=== PATIENT | male | born 1995 | race Two or more races ===

== ENCOUNTER 2017-09-27 22:34 | Inpatient (IN) | payer OTHER ==
[~2017-09-27] VITALS: Ht 172.7 cm; Wt 130.6 kg
--- NOTE | 2017-09-27 23:00 | NUR ---
RN ADMITTING NOTES PATIENT ENTERED FACILITY VIA [facility], ACCOMPANIED BY 2 PERSONNEL OF [facility]. PATIENT IS ALERT AND ORIENTED X 4, NO SOB, BREATHING EVEN AND UNLABORED, SAFELY TRANSFERRED FROM [facility] TO BED BY AMBULATING WITH ASSIST,NO C/O N/V AT THIS TIME AND IN NO ACUTE DISTRESS. ORIENTED PATIENT TO FACILITY, ROOM, CALL LIGHT AND USE OF CALL LIGHT, VERBALIZED UNDERSTANDING. ALL PATIENT'S NEEDS ATTENDED TO AT THIS TIME. PATIENT UNDER TELE MONITORING SINUS TACHY @ 127 BPM. WILL CONTINUE TO MONITOR PATIENT.
--- NOTE | 2017-09-27 23:45 | NUR ---
RN NOTE PATIENT IN BED, IN NO ACUTE DISTRESS, AUTO TECHNICIAN GINO AT BEDSIDE WITH NEW ORDERS TO GIVE 500 ML NS IV BOLUS AND TO ORDER STAT EKG. ALL ORDERS NOTED AND CARRIED OUT, PATIENT AND PATIENT'S MOTHER AT BEDSIDE MADE AWARE, AGREES WITH PLAN OF CARE. WILL CONTINUE TO MONITOR.
[2017-09-28] MEDS ORDERED: ONDANSETRON HCL/PF 4 MG/2 ML VIAL IVP PRN
[2017-09-28] MEDS ORDERED: MAGNESIUM HYDROXIDE 30 ML UDC PO PRN
[2017-09-28] MEDS ORDERED: HYDROCODONE/APAP 5/325MG 1 EACH TABLET PO PRN
[2017-09-28] MEDS ORDERED: ACETAMINOPHEN 325 MG TABLET PO PRN
[2017-09-28] MEDS ORDERED: Z GUARD REMEDY 2 OZ OINT TP PRN
[2017-09-28] MEDS ORDERED: IV NS 0.9% 500 ML IV ONE
[2017-09-28] MEDS ORDERED: MAG HYDROX/AL HYDROX/SIMETH 30 ML UDC PO PRN
[2017-09-28] MEDS ORDERED: ZOLPIDEM TARTRATE 5 MG TABLET PO PRN
[2017-09-28] MEDS ORDERED: IV NS 0.9% 1,000 ML IV PRN
[2017-09-28 00:02] VITALS: BP 110/68
[2017-09-28 00:51] LABS: BASOPHILS % (AUTO) 0.1 % (0.0-2.0); HEMATOCRIT 41 % (39-51); HEMOGLOBIN 14.4 g/dL (13.5-17.5); LYMPHOCYTES # (AUTO) 0.9 /CMM (0.8-4.8); LYMPHOCYTES % (AUTO) 10.6 % (20.0-44.0); MEAN CORPUSCULAR HEMOGLOBIN 31 PG (26.0-33.0); MEAN CORPUSCULAR HGB CONC 35 g/dl (31.0-36.0); MEAN CORPUSCULAR VOLUME 89 fL (80-96); MONOCYTES # (AUTO) 0.6 /CMM (0.1-1.30); MONOCYTES % (AUTO) 7.2 % (2.0-12.0); NEUTROPHILS # (AUTO) 6.8 /CMM (1.8-8.9); NEUTROPHILS % (AUTO) 82.1 % (43.0-81.0); PLATELET COUNT (AUTO) 213 /CMM (150-450); RDW COEFFICIENT OF VARIATION 12.8 (11.5-15.0); RED BLOOD CELL COUNT(AUTO) 4.67 MIL/uL (4.5-6.0); WHITE BLOOD COUNT (AUTO) 8.2 K/uL (4.3-11.0)
[2017-09-28] MEDS: diphenhydrAMINE HCL ELIX 25 MG/10 ML UDC PO SCH ×3 (00:55→13:14)
[2017-09-28] MEDS ORDERED: VANCOMYCIN 1,500 MG in IV D5W 250 ML IV ONE (01:00)
[2017-09-28] MEDS ORDERED: PIPERACILLIN /TAZOBACTAM 3.375 G in IV D5W 100 ML IV SCH (01:00)
[2017-09-28 01:09] LABS: CARBON DIOXIDE 20 mmol/L (21-32); CHLORIDE 104 mmol/L (98-107); GLUCOSE 101 mg/dL (74-106); POTASSIUM 3.7 mmol/L (3.5-5.1); SODIUM SERUM 137 mmol/L (136-145); UREA NITROGEN, BLOOD 14 mg/dL (7-18)
[2017-09-28 01:16] LABS: ALANINE AMINOTRANSFERASE 104 U/L (12-78); ALBUMIN 3.5 g/dL (3.4-5.0); ALKALINE PHOSPHATASE 56 U/L (46-116); ASPARTATE AMINOTRANSFERASE 82 U/L (15-37); BILIRUBIN,TOTAL 1.8 mg/dL (0.2-1.0); MAGNESIUM 1.7 mg/dL (1.8-2.4); TOTAL PROTEIN, SERUM 7.5 g/dL (6.4-8.2)
[2017-09-28 01:19] LABS: TROPONIN I < 0.017 ng/mL (0.00-0.056)
[2017-09-28 01:30] VITALS: BP 112/67
--- NOTE | 2017-09-28 01:35 | NUR ---
RN NOTE CALLED NATIONAL COVERAGE SPECIALIST MD/MANAGER [employer] TO RELAY STAT EKG AND LAB RESULTS. AWAITING FOR CALL BACK.
[2017-09-28] MEDS ORDERED: PIPERACILLIN /TAZOBACTAM 3.375 G VIAL IV ONE (02:06)
[2017-09-28] MEDS ORDERED: VANCOMYCIN 1 GM VIAL ONE (02:08)
--- NOTE | 2017-09-28 02:45 | NUR ---
RN NOTE RECEIVED CALL BACK FROM DIANA CHRISTIAN AND RELAYED STAT EKG AND STAT LAB RESULTS WITH NO NEW ORDERS. WILL CONTINUE TO MONITOR PATIENT.
[2017-09-28] MEDS ORDERED: methylPREDNISolone SOD SUCC 40 MG/ML VIAL IV ONE (03:00)
[2017-09-28 04:00] VITALS: BP 115/71
--- NOTE | 2017-09-28 06:23 | NUR ---
RN CLOSING NOTE PATIENT IN BED, AWAKE, ALERT AND ORIENTED X 4, VERBALIZED HE IS FEELING A LITTLE BETTER, ABLE TO AMBULATE TO USE THE RESTROOM, NO SOB NOTED, BREATHING EVEN AND UNLABORED, HAD ONLY 1 EPISODE OF LOOSE STOOL DURING THE SHIFT, NO N/V. ALL PATIENT'S NEEDS ATTENDED TO AT THIS TIME, LATEST TEMP AT 100.3F WITH COOLING MEASURES APPLIED. PATIENT IN NO ACUTE DISTRESS AT THIS TIME. CALL LIGHT PLACED WITHIN EASY REACH. BED PLACED IN LOW POSITION AND LOCKED IN PLACE. WILL ENDORSE TO AM SHIFT NURSE FOR CONTINUITY OF CARE.
[2017-09-28 06:36] LABS: BASOPHILS % (AUTO) 0.1 % (0.0-2.0); HEMATOCRIT 39 % (39-51); HEMOGLOBIN 13.9 g/dL (13.5-17.5); LYMPHOCYTES # (AUTO) 0.6 /CMM (0.8-4.8); LYMPHOCYTES % (AUTO) 9.5 % (20.0-44.0); MEAN CORPUSCULAR HEMOGLOBIN 31 PG (26.0-33.0); MEAN CORPUSCULAR HGB CONC 35 g/dl (31.0-36.0); MEAN CORPUSCULAR VOLUME 88 fL (80-96); MONOCYTES # (AUTO) 0.2 /CMM (0.1-1.30); MONOCYTES % (AUTO) 3.3 % (2.0-12.0); NEUTROPHILS # (AUTO) 5.8 /CMM (1.8-8.9); NEUTROPHILS % (AUTO) 87.1 % (43.0-81.0); PLATELET COUNT (AUTO) 176 /CMM (150-450); RDW COEFFICIENT OF VARIATION 12.9 (11.5-15.0); RED BLOOD CELL COUNT(AUTO) 4.48 MIL/uL (4.5-6.0); WHITE BLOOD COUNT (AUTO) 6.7 K/uL (4.3-11.0)
[2017-09-28 07:23] LABS: CREATININE 0.9 mg/dL (0.6-1.3); PHOSPHORUS 3.1 mg/dL (2.5-4.9); POTASSIUM 3.7 mmol/L (3.5-5.1)
[2017-09-28 07:26] LABS: APPEARANCE,URINE CLEAR (CLEAR); BILIRUBIN,URINE NEGATIVE (NEGATIVE); BLOOD, URINE 1+ Ery/uL (NEGATIVE); COLOR,URINE YELLOW (YELLOW); KETONES,URINE NEGATIVE (NEGATIVE); LEUKOCYTE ESTERASE ,URINE NEGATIVE (NEGATIVE); NITRITE, URINE NEGATIVE (NEGATIVE); PROTEIN,URINE NEGATIVE (NEGATIVE); UGLUCOSE NEGATIVE (NEGATIVE); UROBILINOGEN,URINE 0.2 EU/dL (0.2)
[2017-09-28 07:29] LABS: BACTERIA,URINE None seen /HPF (None Seen); RBC,URINE 0-2 /HPF (0-2); SQUAMOUS EPITHELIAL CELL,UR 0-2 /HPF (None Seen); WBC,URINE 0-2 /HPF (0-3)
--- NOTE | 2017-09-28 07:29 | NUR ---
MS RN OPENING NOTES RECEIVED PT FROM NIGHTSHIFT NURSE IN STABLE CONDITION. PT IS A/O X4. NO SOB OR SIGNS OF DISTRESS NOTED. BREATHING IS EVEN AND UNLABORED. PT IS DIAPHORETIC. CURRENT TEMPERATURE IS 97.8. PT DENIES ANY N/V OR DIARRHEA AT THIS TIME. IV NOTED TO RIGHT AC 20G INFUSING NS @ 100ML/HR. PT TOLERATING INFUSION WELL. NO REDNESS OR SIGNS OF INFILTRATION NOTED. BED IN LOW LOCKED POSITION, SIDE RAILS UP X2, CALL LIGHT WITHIN REACH, WILL CONTINUE TO MONITOR
[2017-09-28 07:54] LABS: CALCIUM, SERUM 7.9 mg/dL (8.5-10.1); POTASSIUM 3.7 mmol/L (3.5-5.1)
[2017-09-28 07:59] LABS: ALBUMIN 3.5 g/dL (3.4-5.0); BILIRUBIN,TOTAL 1.7 mg/dL (0.2-1.0); MAGNESIUM 1.7 mg/dL (1.8-2.4); PHOSPHORUS 2.4 mg/dL (2.5-4.9); TOTAL PROTEIN, SERUM 7.5 g/dL (6.4-8.2)
[2017-09-28 08:00] VITALS: BP 124/71
[2017-09-28] MEDS ORDERED: FEE PK DOSING 1 MIN EA MC ONE (08:10)
[2017-09-28] MEDS ORDERED: VANCOMYCIN 1.5 GM in IV D5W 500 ML IV SCH (09:00)
[2017-09-28] MEDS: PIPERACILLIN /TAZOBACTAM 3.375 G in IV D5W 50 ML IV SCH ×2 (09:01→13:14)
[2017-09-28] MEDS: OSELTAMIVIR PHOSPHATE 75 MG CAPSULE PO SCH ×2 (09:02→18:11)
[2017-09-28] MEDS: FAMOTIDINE (20 MG) 20 MG TABLET PO SCH ×2 (09:02→21:26)
[2017-09-28] MEDS: ENOXAPARIN SODIUM 40 MG/0.4 ML DISP.SYRIN SQ SCH (09:05)
[2017-09-28] MEDS ORDERED: HYDR-552 PO (11:35)
[2017-09-28] MEDS ORDERED: K PHOS NEUTRAL 250 MG TABLET PO ONE (12:00)
[2017-09-28] MEDS ORDERED: methylPREDNISolone SOD SUCC 40 MG/ML VIAL IV SCH (13:00)
[2017-09-28] MEDS: Magnesium 1GM/D5W 100ML PREMIX 100 ML IV SCH ×2 (13:15→14:50)
[2017-09-28] MEDS ORDERED: AZITHROMYCIN 500 MG in IV D5W 250 ML IV SCH (14:00)
[2017-09-28] MEDS ORDERED: CEFTRIAXONE 1 G in IV NS 0.9% 50 ML IV SCH (15:00)
[2017-09-28 16:00] VITALS: BP 127/70
--- NOTE | 2017-09-28 17:39 | NUR ---
MS RN NOTES DR BARBOSA CALLED IN REGARDS TO PT'S ABX. PER DR. BARBOSA "D/C HIS VANCO AND ZOSYN". HE ALSO ASKED THAT I D/C THE PT'S BENADRYL. WILL CARRY OUT ORDERS
--- NOTE | 2017-09-28 18:15 | NUR ---
Dr Hernandez at the bedside examining the patient
--- NOTE | 2017-09-28 18:37 | NUR ---
MS RN CLOSING NOTES PT REMAINS IN STABLE CONDITION. ALL NEEDS WERE MET DURING SHIFT AND ORDERS CARRIED OUT ACCORDINGLY. ALL DUE MEDS GIVEN. PT REPORTED THAT HE WAS NAUSEAS ABOUT 20MINS AGO. ZOFRAN WAS GIVEN AND EFFECTIVE. PT REMAINED AFEBRILE THROUGHOUT SHIFT. SAFETY MEASURES REMAIN IN PLACE. WILL ENDORSE TO NIGHTSHIFT NURSE FOR SELVIN
[2017-09-28 20:00] VITALS: BP 128/75
--- NOTE | 2017-09-28 22:31 | NUR ---
Patient is a minor lives at home with parents. He is ambulatory and independent with adl's. Parent will provide ride home once discharge. Addendum: 09/28/17 at 2232 by DULCE GUERRERO RN Amended: Links added.
--- NOTE | 2017-09-29 07:20 | NUR ---
RN NOTES PATIENT ALERT AND ORIENTED X3, NO DISTRESS NOTED, DENIES PAIN OR DISCOMFORT AT THIS TIME, PATIENT REFUSED IV HYDRATION AT THIS TIME. PATIENT SEEN BY DR. COLINDRES. NEEDS ATTENDED AND ANTICIPATED, CALL LIGHT WITHIN REACH, WILL CONTINUE TO MONITOR.
[2017-09-29 08:00] VITALS: BP 121/75
[2017-09-29 08:03] LABS: CALCIUM, SERUM 8.4 mg/dL (8.5-10.1); CREATININE 0.9 mg/dL (0.6-1.3); POTASSIUM 3.5 mmol/L (3.5-5.1)
[2017-09-29] MEDS: FAMOTIDINE (20 MG) 20 MG TABLET PO SCH (09:26)
[2017-09-29] MEDS: OSELTAMIVIR PHOSPHATE 75 MG CAPSULE PO SCH (09:26)
[2017-09-29] MEDS: ENOXAPARIN SODIUM 40 MG/0.4 ML DISP.SYRIN SQ SCH (09:33)
--- NOTE | 2017-09-29 10:34 | NUR ---
RN NOTES PATIENT SEEN BY DR. CHELSEY MD EXPLAINED LAB AND IMAGING RESULTS, PATIENT IS THEN CLEARED FOR DISCHARGE. PATIENT ADVISED TO LOSE WEIGHT, TO PREVENT FATTY LIVER DISEASE OR ANY FURTHER DAMAGE TO LIVER. PATIENT IS INSTRUCTED TO FOLLOW UP WITH CONCRETE LABORER, BOTH PATIENT AND FATHER VERBALIZED UNDERSTANDING.
--- NOTE | 2017-09-29 13:50 | NUR ---
BOX TRUCK DRIVER NOTES PATIENT AND MOTHER AT BEDSIDE, BOTH RECEIVED DISCHARGE INSTRUCTIONS: TO F/U WITH [facility] IN 2 WEEKS, TAKE ANTIBIOTIC AND TAMIFLU DIRECTED BY MD, AND ENCOURAGED PATIENT TO LOSE WEIGHT. PATIENT AND MOTHER VERBALIZED UNDERSTANDING. SKIN ASSESSMENT DONE, SKIN INTACT. BELONGINGS RECONCILED AND COMPLETE. PIV REMOVED AND APPLIED GAUZE WITH TAPE. ID BANDS REMOVED. PATIENT LEFT THE FACILITY IN NO DISTRESS.
== END 2017-09-29 13:58 | disposition home or self-care (01) | DRG 249 ==
LOC: TELE 22:52 → MED 09-28 09:38
PROVIDERS: ADMIT Nurse Practitioner Acute Care; ATTEND Nurse Practitioner Acute Care
DX: A08.4 Viral intestinal infection, unspecified (principal); E66.9 Obesity, unspecified; B34.9 Viral infection, unspecified; R07.81 Pleurodynia; J45.909 Unspecified asthma, uncomplicated; R74.0 Nonspecific elevation of levels of transaminase and lactic acid dehydrogenase [LDH]; G47.33 Obstructive sleep apnea (adult) (pediatric); R00.0 Tachycardia, unspecified; Z68.54 Body mass index [BMI] pediatric, 95th percentile for age to less than 120% of the 95th percentile for age
CPT/HCPCS: 36415; 71045-TC; 76705-TC; 80048-TC; 80053-TC; 80061-TC; 81000-TC; 83605-TC; 83735-TC; 84100-TC; 84484-TC; 85025-TC; 86709; 87040-TC; 87081-TC; 87086-TC; 93307-TC; A4216; J0456; J0696; J1650; J2405; J2543; J2920; J3370; J3475; J7030; J7040; J7060; Q0163; Z7610